=== PATIENT | female | born 1965 | race Caucasian/White ===

== ENCOUNTER 2017-06-28 05:05 | Inpatient (IN) | payer BC ==
[2017-06-22 14:49] VITALS: BMI 23.8
[2017-06-28] MEDS ORDERED: DEXAMETHASONE SOD PHOSPHATE/PF 10 MG/ML SDV ONE (07:26)
[2017-06-28] MEDS ORDERED: ROPIVACAINE HCL 0.5% 30ML VIAL ONE (07:26)
[2017-06-28] MEDS ORDERED: MIDAZOLAM HCL 2 MG/2 ML SINGLE DOSE VIAL ONE ×2 (07:27)
[2017-06-28] MEDS ORDERED: ceFAZolin 2 GRAM PREMIX BAG IVPB ONE (09:00)
--- NOTE | 2017-06-28 09:04 | HP ---
Past Medical History - Primary Care Physician PCP:: Yandel Zimmerman - Admission Chief Complaint: pelvic pain, fibroid uterus History of Present Illness: 52 yo f with hx of large fibroid uterus, pelvic pain, admitted for supracervical abdominal hysterectomy, bilateral salpingectomy, possible BSO, rba has discussed with patient History Source: Patient Limitations to Obtaining History: No Limitations - Past Surgical History Hx Myomectomy: No Hx Transabdominal Cerclage: No - Smoking History Smoking history: Never smoked Have you smoked in the past 12 months: No - Alcohol/Substance Use Hx Alcohol Use: No Home Medications - Allergies Allergies/Adverse Reactions: Allergies Allergy/AdvReac Type Severity Reaction Status Date / Time No Known Drug Allergies Allergy Verified 06/28/17 07:45 - Home Medications Home Medications: Ambulatory Orders Multivit-Min/Iron/Folic/Lutein [Centrum Silver Women Tablet] 1 tab PO DAILY Review of Systems - Review of Systems Constitutional: reports: No Symptoms Eyes: reports: No Symptoms HENT: reports: No Symptoms Neck: reports: No Symptoms Cardiovascular: reports: No Symptoms Respiratory: reports: No Symptoms Gastrointestinal: reports: Abdominal Pain, Bloating Genitourinary: reports: Frequency, Vaginal Bleeding Breasts: reports: No Symptoms Reported Musculoskeletal: reports: No Symptoms Integumentary: reports: No Symptoms Neurological: reports: No Symptoms Endocrine: reports: No Symptoms Hematology/Lymphatic: reports: No Symptoms Psychiatric: reports: No Symptoms 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 Vital Signs: Vital Signs Temperature 98.2 F 06/28/17 07:36 Pulse Rate 90 06/28/17 07:36 Respiratory Rate 18 06/28/17 07:36 Blood Pressure 145/91 06/28/17 07:36 O2 Sat by Pulse Oximetry (%) 100 06/28/17 07:36 Constitutional: Yes: Well Nourished, No Distress, Calm Eyes: Yes: WNL, Conjunctiva Clear, EOM Intact HENT: Yes: WNL, Atraumatic, Normocephalic Neck: Yes: WNL, Supple, Trachea Midline Cardiovascular: Yes: WNL, Regular Rate and Rhythm Respiratory: Yes: WNL, Regular, CTA Bilaterally Gastrointestinal: Yes: WNL, Normal Bowel Sounds, Palpable Mass (18 weeks arising from pelvic area) ...Rectal Exam: Yes: WNL Renal/: Yes: WNL Pelvis: Yes: Mass External Genitalia: Yes: Normal Internal Exam Deferred: Yes Vaginal Exam: Yes: Normal Cervix: Yes: Normal Uterus: Yes: Freely Moveable, Enlarged, Lumpy, Tender Adnexa: Not Palpable: Left, Right Breast(s): Yes: WNL Musculoskeletal: Yes: WNL Extremities: Yes: WNL Edema: No Integumentary: Yes: WNL Neurological: Yes: WNL, Alert, Oriented ...Motor Strength: WNL Psychiatric: Yes: WNL, Alert, Oriented Problem List - Problem (1) Pelvic pain Code(s): R10.2 - PELVIC AND PERINEAL PAIN (2) Leiomyoma Code(s): D21.9 - BENIGN NEOPLASM OF CONNECTIVE AND OTHER SOFT TISSUE, UNSP (3) Fibroid uterus Code(s): D25.9 - LEIOMYOMA OF UTERUS, UNSPECIFIED Qualifiers: Uterine leiomyoma location: intramural Qualified Code(s): D25.1 - Intramural leiomyoma of uterus Assessment/Plan supracervical abdominal hysterectomy , bilateral salpingectomy, possible BSO, rba discussed
[2017-06-28] MEDS ORDERED: ROCURONIUM BROMIDE 50 MG/5 ML VIAL ONE (09:07)
[2017-06-28] MEDS ORDERED: ceFAZolin SODIUM 1 GM VIAL IVPB ONE (09:15)
[2017-06-28] MEDS ORDERED: ceFAZolin SODIUM 1 GM VIAL ONE (09:28)
[2017-06-28] MEDS ORDERED: DEXAMETHASONE SOD PHOSPHATE 4 MG/1 ML VIAL ONE ×2 (09:35→10:36)
[2017-06-28] MEDS ORDERED: PROMETHAZINE HCL 25 MG/1 ML VIAL ONE (10:59)
[2017-06-28] MEDS ORDERED: HYDROmorphone HCL CARPU-JECT 2 MG/1 ML DISP.SYRIN ONE (10:59)
[2017-06-28] MEDS ORDERED: HYDROmorphone HCL CARPU-JECT 1 MG/1 ML DISP.SYRIN IVPUSH PRN (11:02)
[2017-06-28] MEDS ORDERED: IBUPROFEN 800 MG/8 ML IJ IVPB PRN (11:02)
[2017-06-28] MEDS ORDERED: PROMETHAZINE HCL 25 MG/1 ML VIAL IVPB PRN (11:02)
[2017-06-28] MEDS ORDERED: ONDANSETRON 4 MG/2 ML VIAL IVPUSH PRN (11:02)
[2017-06-28] MEDS ORDERED: oxyCODONE HCL 5 MG TABLET PO PRN (11:02)
[2017-06-28] MEDS ORDERED: ACETAMINOPHEN 1000 MG/100 ML VIAL (NON FORMULARY) IVPB ONE ×2 (11:04→11:20)
[2017-06-28] MEDS ORDERED: HYDROmorphone HCL CARPU-JECT 2 MG/1 ML DISP.SYRIN IVPUSH ONE ×2 (11:05→11:15)
[2017-06-28] MEDS ORDERED: PROMETHAZINE HCL 25 MG/1 ML VIAL IVPB ONE (11:10)
[2017-06-28] MEDS ORDERED: LACTATED RINGERS SOLUTION 1,000 ML IV SCH (11:15)
[2017-06-28] MEDS ORDERED: HYDROmorphone *PCA* 10MG/50ML DISP.SYRIN PCA ONE ×2 (11:23→11:25)
--- NOTE | 2017-06-28 14:43 | OP ---
DATE OF OPERATION: 06/28/2017 PREOPERATIVE DIAGNOSES: Pelvic pain, large fibroid uterus. POSTOPERATIVE DIAGNOSES: Pelvic pain, large fibroid uterus. PROCEDURE: Supracervical abdominal hysterectomy, left salpingectomy. SURGEON: Yandel Zimmerman MD CHIEF ENGINEER DRILLING AND RECOVERY: Audrey Sanchez MD ANESTHESIA: General. ANESTHESIOLOGIST: Edward Richards DO ESTIMATED BLOOD LOSS: 100 mL DESCRIPTION OF OPERATIVE PROCEDURE: Patient was taken to the operating room. Under adequate general anesthesia, in dorsal supine position, abdomen and perineum were prepped and draped. Pfannenstiel abdominal skin incision was made. Abdominal wall was cut layer by layer until the peritoneum was exposed and incised. The upper abdomen was checked, was normal. Bowels were packed away, and then, the pelvic organs showed the large uterus, which appeared to be like adenomyosis and fibroid. The left ovary was normal. Patient appeared to have had a right salpingo-oophorectomy in the past. The cul-de-sac was free of adhesions. The bladder was normal. Then, both were identified, clamped with a bipolar LigaSure cautery, cauterized, and cut, and then, anterior leaf of broad ligament was opened. Bladder was pushed down. Then, the left tube was removed along the mesosalpinx with the bipolar LigaSure cautery. Then, the left ovary and ovarian ligament was grasped with LigaSure cautery, cauterized, and cut, and the left ovary was removed from the uterus. Then, bladder was further pushed down. The uterine artery was identified bilaterally, clamped with Sonido clamp, cut, and the clamp replaced with 0 Vicryl suture bilaterally. Then, paracervical area was clamped with Sonido clamp, cut, and the clamp replaced with 0 Vicryl suture bilaterally. Then, the uterus was removed above the cervix, and then, cervix was sutured with interrupted suture of 0 Vicryl. Hemostasis was established. Then, the pelvic cavity several times irrigated. No active bleeding was seen. Both ureters were manually checked, appeared to be intact. Then, there was slight oozing at the bladder bed which Surgicel was placed, and hemostasis established. Then, all the lap and sponge and instrument counts were correct. Peritoneum was closed with 0 Vicryl continuous suture. Muscles were brought together with interrupted suture of 0 Vicryl. Fascia was closed with 0 Vicryl continuous suture, subcutaneous fat with interrupted suture of 0 Vicryl, and the skin was closed with 4-0 Biosyn subcuticular continuous suture. Patient tolerated the procedure well, left the OR in good condition. Babs [id number]
[2017-06-28] MEDS: ELECTROLYTE-148 SOLN 1,000 ML IV SCH (18:48)
[2017-06-28] MEDS: CEFAZOLIN 1 GM PUSH 1 GM/10 ML DISP.SYRIN IVPUSH SCH (20:29)
[2017-06-29] MEDS: CEFAZOLIN 1 GM PUSH 1 GM/10 ML DISP.SYRIN IVPUSH SCH ×2 (02:58→09:20)
--- NOTE | 2017-06-29 08:17 | PN ---
Progress Note (short form) - Note Progress Note: ANESTHESIOLOGY POST-OP CHECK 52F s/p MILES & L salpingectomy with B/L TAP block and general anesthesia POD #1. No acute complaints. Some nausea overnight now resolved. Pain 2-8/10 with good effect from Dilaudid ARCHIVES DIRECTOR. Not yet OOB. gustafson in place. Vital Signs Temperature 97.7 F 06/29/17 06:00 Pulse Rate 69 06/29/17 06:00 Respiratory Rate 20 06/29/17 06:00 Blood Pressure 106/62 06/29/17 06:00 O2 Sat by Pulse Oximetry (%) 100 06/28/17 21:00 Active Medications Enoxaparin Sodium (Lovenox -) 40 mg SQ DAILY SLIM Hydromorphone HCl (Dilaudid Injection -) 0.5 mg IVPUSH [id number] PRN PRN Reason: PAIN-PACU ORDER X 4 DOSES ONLY Parenteral Electrolytes (Plasma-Lyte 148 -) 1,000 mls @ 125 mls/hr IV ASDIR SLIM Last Admin: 06/28/17 18:48 Dose: 125 mls/hr Cefazolin Sodium (Ancef -) 1 gm in 10 mls @ 120 mls/hr IVPUSH Q8H-IV SLIM Stop: 06/29/17 17:59 Last Admin: 06/29/17 02:58 Dose: 120 mls/hr Lactated Ringer's (Lactated Ringers Solution) 1,000 mls @ 75 mls/hr IV ASDIR SLIM Ibuprofen (Motrin -) 600 mg PO Q6H PRN PRN Reason: FEVER Ibuprofen (Caldolor Injection -) 800 mg IVPB Q6H PRN PRN Reason: FEVER Ondansetron HCl (Zofran Injection) 4 mg IVPUSH Q6H PRN PRN Reason: NAUSEA Oxycodone HCl (Roxicodone -) 10 mg PO Q4H PRN PRN Reason: PAIN LEVEL 1-5 Promethazine HCl (Phenergan Injection -) 12.5 mg IVPB Q6H PRN PRN Reason: NAUSEA-FOR RESCUE AFTER 15 MIN Gen: Awake, alert No apparent anesthesia complications. Pain well controlled with Dilaudid ARCHIVES DIRECTOR. May D/C ARCHIVES DIRECTOR today when diet is advanced. Switch to PO pain meds as per surgeon. Continue management as per primary team.
[2017-06-29] MEDS ORDERED: BISACODYL 10 MG SUPP.RECT PR PRN (08:32)
[2017-06-29 08:50] LABS: CHLORIDE 100 mmol/L (98-107); POTASSIUM 4.3 mmol/L (3.5-5.1); SODIUM 136 mmol/L (136-145)
[2017-06-29 09:14] LABS: HEMATOCRIT 28.9 % (32.4-45.2); HEMOGLOBIN 8.4 GM/dL (10.7-15.3); MEAN CELL VOLUME 65.9 fl (80-96); MEAN PLT VOLUME 8.3 fl (7.5-11.1); PLATELET COUNT 258 K/MM3 (134-434); RBC 4.38 M/mm3 (3.60-5.2); RDW 17.9 % (11.6-15.6); WHITE BLOOD COUNT 8.5 K/mm3 (4.0-10.0)
[2017-06-29 09:16] LABS: MCH 19.1 pg (25.7-33.7)
[2017-06-29 09:35] LABS: ANION GAP 10 (8-16); BLOOD UREA NITROGEN 15 mg/dL (7-18); CALCIUM 8.4 mg/dL (8.5-10.1); CO2 26 mmol/L (21-32); CREATININE 0.6 mg/dL (0.55-1.02); GLUCOSE,RANDOM 92 mg/dL (74-106)
[2017-06-29] MEDS ORDERED: PCA PUMP KEY 1 EACH EACH ONE (09:36)
[2017-06-29] MEDS: ENOXAPARIN NA (PORCINE) 40 MG/0.4 ML DISP.SYRIN SQ SCH (09:54)
[2017-06-29] MEDS: ELECTROLYTE-148 SOLN 1,000 ML IV SCH (12:33)
[2017-06-29] MEDS: SIMETHICONE 80 MG TAB.CHEW (FP) PO PRN (16:13)
[2017-06-29] MEDS: ACETAMINOPHEN 325 MG TABLET (FP) PO PRN ×2 (16:13→21:25)
[2017-06-29] MEDS: IBUPROFEN 600 MG TABLET (FP) PO PRN ×2 (16:13→21:26)
[2017-06-29 21:21] VITALS: TEMP 98.3
[2017-06-30] MEDS: SIMETHICONE 80 MG TAB.CHEW (FP) PO PRN ×2 (03:24→11:32)
[2017-06-30] MEDS: ACETAMINOPHEN 325 MG TABLET (FP) PO PRN ×2 (03:24→12:13)
[2017-06-30] MEDS: IBUPROFEN 600 MG TABLET (FP) PO PRN (03:25)
--- NOTE | 2017-06-30 07:56 | PN ---
Progress Note (short form) - Note Progress Note: 04/29 18 pod 1 doing well , afebrile VSS abdomen soft , no distenson, BS present incision dry , clean no calf tenderness CBC, BMP 06/29/17 07:45 06/29/17 07:45 plan ambulate, advance diet pain management Problem List - Problems (1) Pelvic pain Code(s): R10.2 - PELVIC AND PERINEAL PAIN (2) Leiomyoma Code(s): D21.9 - BENIGN NEOPLASM OF CONNECTIVE AND OTHER SOFT TISSUE, UNSP (3) Fibroid uterus Code(s): D25.9 - LEIOMYOMA OF UTERUS, UNSPECIFIED Qualifiers: Uterine leiomyoma location: intramural Qualified Code(s): D25.1 - Intramural leiomyoma of uterus
[2017-06-30 09:18] VITALS: BP 126/74; PULSE 86
[2017-06-30] MEDS: ENOXAPARIN NA (PORCINE) 40 MG/0.4 ML DISP.SYRIN SQ SCH (09:42)
--- NOTE | 2017-06-30 15:55 | DS ---
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: Vital Signs Temperature 98.3 F 06/30/17 09:12 Pulse Rate 86 06/30/17 09:12 Respiratory Rate 20 06/30/17 09:12 Blood Pressure 126/74 06/30/17 09:12 O2 Sat by Pulse Oximetry (%) 99 06/29/17 21:00 Constitutional: Yes: Well Nourished, No Distress, Calm Eyes: Yes: WNL, Conjunctiva Clear, EOM Intact HENT: Yes: WNL, Atraumatic, Normocephalic Neck: Yes: WNL, Supple, Trachea Midline Cardiovascular: Yes: WNL, Regular Rate and Rhythm Respiratory: Yes: WNL, Regular, CTA Bilaterally Gastrointestinal: Yes: WNL ...Rectal Exam: Yes: WNL Renal/: Yes: WNL Breast(s): Yes: WNL Musculoskeletal: Yes: WNL Extremities: Yes: WNL Edema: No Integumentary: Yes: WNL Wound/Incision: Yes: Clean/Dry, Well Approximated, Sutures Intact Neurological: Yes: WNL, Alert, Oriented ...Motor Strength: WNL Psychiatric: Yes: WNL, Alert, Oriented Labs: CBC, BMP 06/29/17 07:45 06/29/17 07:45 Discharge Summary Reason For Visit: POSTMENOPAUSAL BLEEDING, PELVIC PAIN, FIBROIDS TAVIA Current Active Problems Fibroid uterus (Acute) Leiomyoma (Acute) Pelvic pain (Acute) Procedures: Principal: supracervical abdomainal hysterectomy, RT SO, lt salpingectomy Hospital Course: uneventful Condition: Good - Instructions Diet, Activity, Other Instructions: regular diet, follow up office 2 weeks, if pain, fever ,bleeding call MD Disposition: HOME - Home Medications Comprehensive Discharge Medication List: Ambulatory Orders Multivit-Min/Iron/Folic/Lutein [Centrum Silver Women Tablet] 1 tab PO DAILY Ibuprofen [Motrin -] 600 mg PO QID #28 tablet 06/30/17 Oxycodone HCl/Acetaminophen [Percocet 5-325 mg Tablet] 1 tab PO Q6H PRN #20 tablet MDD 4 06/30/17
--- NOTE | 2017-07-01 15:48 | PATH ---
Surgical Pathology Report Patient Name: IZAIAH TERRAZAS [facility]. Rec. #: [id number] /Age/Gender: 1965 (Age: 52) / F Account: [id number] Location: [facility] OBS/TURKEY BONER Taken: 06/28/2017 Received: 06/28/2017 Reported: 07/01/2017 Physicians: Yandel Zimmerman M.D. Specimen(s) Received UTERUS LEFT FALLOPIAN TUBE Clinical History Postmenopausal bleeding, fibroid uterus Final Diagnosis UTERUS, OVARY AND FALLOPIAN TUBE, LEFT, SUPRACERVICAL HYSTERECTOMY WITH LEFT SALPINGO-OOPHORECTOMY: 653 G UTERUS WITH PROLIFERATIVE ENDOMETRIUM. MYOMETRIUM WITH INTRAMURAL LEIOMYOMATA AND FOCAL ADENOMYOSIS. BENIGN ENDOCERVICAL TISSUE. LEFT OVARY WITH FOLLICULAR CYST. LEFT FALLOPIAN TUBE WITH PARATUBAL CYSTS. Electronically Signed Zaria Flood M.D. Gross Description Received fresh labeled "uterus and left fallopian tube," is a 653 g supracervically amputated uterus with bilateral attached fallopian tubes and attached right ovary. The specimen measures 12 cm from superior to inferior, 10 cm from left to right and 9 cm from anterior to posterior. The serosa is pink-condon and smooth. The endometrial cavity measures 8 cm in length and 5.5 cm from cornu to cornu. The endometrium is condon-red and averages 0.1 cm in thickness. The myometrium displays a 7.5 cm in greatest dimension bulging intramural nodule. There are additional smaller intramural nodules identified. The cut surface of the nodules is condon, firm to rubbery and displays whorled architecture. No areas of hemorrhage or necrosis are identified. The remaining myometrium is condon-pink and trabeculated, measuring up to 5 cm in thickness. The left fimbriated fallopian tube measures 7.5 cm in length. The outer surface is kaminski purple and smooth with a 0.8 cm in greatest dimension paratubal cyst attached. Sectioning reveals an unremarkable lumen. The right fimbriated fallopian tube measures 4 cm in length. The outer surface is condno-kaminski with tubal ovarian adhesions. Sectioning reveals an unremarkable lumen. The attached right ovary measures 3.0 x 2.0 x 1.3 cm. The outer surface is condon guerra with adhesions. Sectioning of the ovary reveals a 1.7 cm in greatest dimension follicular cyst. The remaining ovarian parenchyma is unremarkable. Psychiatric Tech sections are submitted in 15 cassettes as follows: 1-cervical stump margin of resection; 5-7-luvtcyio endomyometrium; 8-6-pxoookwbt endomyometrium; 6-8-largest intramural nodule; 9-additional intramural nodules; 10-left fallopian tube fimbria; 11-cross sections of left fallopian tube; 12-right fallopian tube fimbria; 13-cross sections of right fallopian tube; 14-right ovarian cyst; 15-right ovary. 06/29/2017 saudi06/29/2017
== END 2017-06-30 16:50 | disposition home or self-care (01) | DRG 743 ==
LOC: JSAMEDAYSX 05:05 → EDSTATUS 09:00 → J3W 13:15
PROVIDERS: ADMIT Obstetrics & Gynecology; ATTEND Obstetrics & Gynecology
PROC: 0UB60ZZ Excision of Left Fallopian Tube, Open Approach (ICD-10-PCS; 2017-06-28)
PROC: 0UT90ZL Resection of Uterus, Supracervical, Open Approach (ICD-10-PCS; principal; 2017-06-28 09:00)
DX: D25.9 Leiomyoma of uterus, unspecified (principal); N80.0 Endometriosis of uterus; Z90.79 Acquired absence of other genital organ(s)
CPT/HCPCS: 36415; 80048; 84703; 85027; 86850; 86900; 86901; 94760

== ENCOUNTER 2017-07-15 15:18 | Emergency (ER) | payer BC ==
--- NOTE | 2017-07-15 15:28 | PDOC ---
Rapid Medical Evaluation Time Seen by Provider: 07/15/17 15:19 Medical Evaluation: Allergies Allergy/AdvReac Type Severity Reaction Status Date / Time No Known Drug Allergies Allergy Verified 06/28/17 07:45 I have performed a brief in-person evaluation of this patient. The patient presents with a chief complaint of: left sided pleuritic chest pain ; pain with deep inspiration, turning in bed and bending over. The patient had a total hysterectomy on 06/28/17. D-dimer was performed at urgent care and was > 1,000. Her father of a PE. Pertinent physical exam findings: none. O2 sat normal. HR normal I have ordered the following: labs, EKG, chest CTA The patient will proceed to the ED for further evaluation.
[2017-07-15 15:31] VITALS: BP 147/87; PULSE 81; TEMP 98.2; BMI 24.1
--- NOTE | 2017-07-15 16:38 | PDOC ---
History of Present Illness - General Chief Complaint: Chest Pain Stated Complaint: CHEST PAIN (REFERRED) Time Seen by Provider: 07/15/17 15:19 - History of Present Illness Initial Comments: Ms Owens is a 52yo F with a PMhx of Total Abdominal Hysterectomy 2 weeks ago who presents w/ acute onset pleuritic SOB that started last night. She was essentially resting watching TV when she suddenly experienced pleuritic chest pain on her L side. She denies SOB or CP at that time. Never had similar episode before. Called OBGYN who directed her to urgent care. D-dimer at was 1080. Denies cough or hemoptysis. Denies immobility post surgery. Denies prior hx of malignancy or blood clots. However, her father of PE 2 weeks post hernia surgery. She denies underlying cardiac or lung disease. Denies fevers, chills. Denies positional worsening of pain Past History - Past Medical History Allergies/Adverse Reactions: Allergies Allergy/AdvReac Type Severity Reaction Status Date / Time No Known Drug Allergies Allergy Verified 07/15/17 15:23 Home Medications: Ambulatory Orders Multivit-Min/Iron/Folic/Lutein [Centrum Silver Women Tablet] 1 tab PO DAILY Oxycodone HCl/Acetaminophen [Percocet 5-325 mg Tablet] 1 tab PO Q6H PRN #20 tablet MDD 4 06/30/17 Ibuprofen [Motrin -] 400 mg PO TID PRN #28 tablet 07/15/17 Anemia: No Asthma: No Cancer: No Cardiac Disorders: No CVA: No COPD: No CHF: No Dementia: No Diabetes: No GI Disorders: No Disorders: No HTN: No Hypercholesterolemia: No Liver Disease: No Seizures: No Thyroid Disease: No Other medical history: FIBROIDS - Surgical History Abdominal Surgery: No Appendectomy: No Cardiac Surgery: No Cholecystectomy: No Lung Surgery: No Neurologic Surgery: No Orthopedic Surgery: No - Suicide/Smoking/Psychosocial Hx Smoking History: Never smoked Have you smoked in the past 12 months: No Information on smoking cessation initiated: No Hx Alcohol Use: No Drug/Substance Use Hx: No Substance Use Type: None Hx Substance Use Treatment: No Review of Systems - Review of Systems Able to Perform ROS?: Yes Constitutional: No: Chills, Diaphoresis, Fever HEENTM: No: Eye Pain, Blurred Vision, Tearing Respiratory: No: Cough, Orthopnea, Shortness of Breath Cardiac (ROS): Yes: Chest Pain. No: Edema, Irregular Heart Rate ABD/GI: No: Abdominal Distended, Abd. Pain w/ defecation : No: Burning, Dysuria, Discharge Musculoskeletal: No: Back Pain, Gout, Joint Pain Integumentary: No: Bruising, Change in Color Neurological: No: Headache, Numbness Psychiatric: No: Anxiety, Depression, Frequent Crying Endocrine: No: Excessive Sweating, Flushing Hematologic/Lymphatic: No: Anemia, Blood Clots, Easy Bleeding *Physical Exam - Vital Signs Last Vital Signs Temp Pulse Resp BP Pulse Ox 98.2 F 81 18 147/87 100 07/15/17 15:24 07/15/17 15:24 07/15/17 15:24 07/15/17 15:24 07/15/17 15:24 - Physical Exam Comments: GEN: AAOx3, NAD, Lying comfortably HEENT: PERRLA, EOMi CV: S1, S2, RRR, no pericardial rub LUNG: CTABL ABD: Soft, NT, ND, normoactve BS MSK: No edema, no erythema NEURO: CN 2-12 intact ED Treatment Course - LABORATORY CBC & Chemistry Diagram: 07/15/17 16:54 07/15/17 16:54 Medical Decision Making - Medical Decision Making 52yo relatively healthy female with hx of MILES 2 weeks ago and family hx of post- surgical PE. Wells score for PE 1.5. D-dimer 1080. EKG shows NSR without S1Q3T3 changes. CXR shows no pneumothorax or no obvious rib fracture. DDx include Pulmonary Embolism, SMall pneumothorax, pleurisy, muscle strain, costochondritis -- CBC, CMP, ESR -- CTA (no known allergy to contrast, no renal disease) 07/15/17 19:39 CTA negative for PE, pneumothorax, pneumonia. ESR negative. Labs show mild anemia but improved from before. Likely diagnosis is costochondritis. Will prescribe NSAIDS and discharge *DC/Admit/Observation/Transfer Diagnosis at time of Disposition: Costochondral chest pain - Discharge Dispostion Disposition: HOME Condition at time of disposition: Stable Admit: No - Prescriptions Prescriptions: Ibuprofen [Motrin -] 400 mg PO TID PRN #28 tablet PRN Reason: Pain - Referrals Referrals: Yandel Zimmerman MD [Staff Physician] - 14 days - Patient Instructions Printed Discharge Instructions: DI for Costochondritis - Post Discharge Activity
--- NOTE | 2017-07-15 16:47 | PDOC ---
Attending Attestation - Resident Resident Name: KathrinedylanBrittani - HPI HPI: 07/15/17 17:25 Pt presents to the ED complaining of a one day history of pleuritic L chest wall pain. Pain is with deep breath only. Patient is able to point to a single spot on her chest where the pain is located. Denies fevers or cough. Denies shortness of breath. - Physicial Exam PE: 07/15/17 17:27 Agree with resident exam. PAteint is well appearing and in no acute distress. Lungs are clear to auscultation bilaterally. CV exam: regular rate and rhythm with no murmurs. - Medical Decision Making 07/15/17 17:27 Pt presents to the ED complaining of pleuritic chest pain. PAtient is recently post surgical and has d dimer drawn in urgent care of > 1000. Differential includes PE, PNA, less likey PTX, ACS or pericarditis, muscular chest pain. Will check CXR to evaluate for PNA or PTX. EKG shows no sign of acs or pericarditis---will check troponins. Will reassess.
[2017-07-15 17:07] LABS: BASO % 1.4 % (0-2.0); EOS % 1.8 % (0-4.5); HEMATOCRIT 32.7 % (32.4-45.2); HEMOGLOBIN 9.7 GM/dL (10.7-15.3); LYMPH % 31.1 % (8-40); MCHC 29.5 g/dl (32.0-36.0); MEAN CELL VOLUME 63.5 fl (80-96); MEAN PLT VOLUME 7.9 fl (7.5-11.1); MONO % 5.2 % (3.8-10.2); NEUT % 60.5 % (42.8-82.8); PLATELET COUNT 484 K/MM3 (134-434); RBC 5.15 M/mm3 (3.60-5.2); RDW 18.6 % (11.6-15.6); WHITE BLOOD COUNT 5.1 K/mm3 (4.0-10.0)
[2017-07-15 17:11] LABS: MCH 18.7 pg (25.7-33.7)
[2017-07-15 17:44] LABS: ALBUMIN 4.1 g/dl (3.4-5.0); ANION GAP 8 (8-16); BILIRUBIN,TOTAL 0.3 mg/dL (0.2-1.0); BLOOD UREA NITROGEN 13 mg/dL (7-18); CALCIUM 9.3 mg/dL (8.5-10.1); CHLORIDE 102 mmol/L (98-107); CO2 28 mmol/L (21-32); CREATININE 0.7 mg/dL (0.55-1.02); GLUCOSE,RANDOM 95 mg/dL (74-106); POTASSIUM 4.3 mmol/L (3.5-5.1); SGOT/AST 11 U/L (15-37); SGPT/ALT 19 U/L (12-78); SODIUM 138 mmol/L (136-145); TOT PROT 7.4 g/dl (6.4-8.2)
[2017-07-15 17:47] LABS: ALK PHOS 76 U/L (45-117)
--- NOTE | 2017-07-16 08:50 | EKG ---
Test Reason : Blood Pressure : / mmHG Vent. Rate : 072 BPM Atrial Rate : 072 BPM P-R Int : 116 ms QRS Dur : 082 ms QT Int : 370 ms P-R-T Axes : 048 071 055 degrees QTc Int : 405 ms NORMAL SINUS RHYTHM NORMAL ECG WHEN COMPARED WITH ECG OF 22-JUN-2017 13:42, NO SIGNIFICANT CHANGE WAS FOUND Confirmed by ANH MALONE MD ([id number]) on 07/16/2017 8:50:33 AM Referred By: Confirmed By:ANH MALONE MD
== END 2017-07-15 20:19 | disposition home or self-care (01) ==
LOC: JER 15:18
DX: M94.0 Chondrocostal junction syndrome [Tietze] (principal)
CPT/HCPCS: 36415; 71275-TC; 80053; 82550; 84484; 85025; 85651; 93005; 93010; 99282-25